=== PATIENT | female | born 1960 | race Caucasian/White ===

== ENCOUNTER 2016-07-14 16:19 | Emergency (ER) | payer OTHER | END 2016-07-14 16:55 | disposition short-term general hospital (02) | LOC: ER 16:19 | DX: T16.2XXA Foreign body in left ear, initial encounter (principal); T16.1XXA Foreign body in right ear, initial encounter; F79 Unspecified intellectual disabilities; Z79.899 Other long term (current) drug therapy; Z88.0 Allergy status to penicillin | CPT/HCPCS: 99283 ==